=== PATIENT | male | born 1990 | race Caucasian/White ===

== ENCOUNTER 2023-04-28 09:10 | Emergency (ER) | payer SELFPAY ==
[2023-04-28 09:23] VITALS: BP 144/95; PULSE 88; RESP 18; TEMP 36.9; O2SAT 97; BMI 23.7
[2023-04-28 09:27] VITALS: O2SAT 98
--- NOTE | 2023-04-28 09:31 | XR_ITS ---
The [address] [address] Patient Name: UBALDO AWAN MRN: [id number] date: 1990 Sex: M Assigned Patient Location: ER Current Patient Location: ER Accession/Order Number: [id number] Exam Date: 04/28/2023 09:42 Report Date: 04/28/2023 10:06 At the request of: STIVEN WILLETT Procedure: XR chest 2V EXAMINATION: XR chest 2V HISTORY: cough COMPARISON: No relevant comparison available. FINDINGS: LUNGS: Thin curvilinear lucency overlying right lung apex concerning for a 2 mm apical pneumothorax. Lungs otherwise clear; no acute infiltrates or mass. VASCULATURE: No increased pulmonary vasculature. PLEURA: No pleural effusion or pleural thickening. CARDIAC: No cardiomegaly or cardiac silhouette abnormality. MEDIASTINUM: No visible mass or adenopathy. BONES: No fracture or visible bone lesion. OTHER: Negative. XR/XR chest 2V IMPRESSION: 1. Tiny right apical pneumothorax versus artifact from air within the supraclavicular fossa. Chest radiographs during inspiration and expiration are recommended for further evaluation. Findings discussed with Dr. Willett in the emergency department at 10:04 AM. Electronically authenticated by: NOE CURRAN Date: 04/28/2023 10:06
--- NOTE | 2023-04-28 10:14 | XR_ITS ---
The [address] [address] Patient Name: UBALDO AWAN MRN: [id number] date: 1990 Sex: M Assigned Patient Location: ER Current Patient Location: ED.MAIN Accession/Order Number: [id number] Exam Date: 04/28/2023 10:22 Report Date: 04/28/2023 10:37 At the request of: STIVEN WILLETT Procedure: XR chest insp exp EXAMINATION: XR chest insp exp HISTORY: inspiratory and expiratory COMPARISON: XR chest 04/28/2023 9:35 AM FINDINGS: LUNGS: Inspiration and expiration views demonstrate normal appearance of the lungs; no infiltrates, mass, or pneumothorax. VASCULATURE: No increased pulmonary vasculature. PLEURA: No pleural effusion or pleural thickening. CARDIAC: No cardiomegaly or cardiac silhouette abnormality. MEDIASTINUM: No visible mass or adenopathy. BONES: No fracture or visible bone lesion. OTHER: Negative. XR/XR chest insp exp IMPRESSION: 1. No pneumothorax. 2. No acute or suspicious findings to account for patient's symptoms. Electronically authenticated by: NOE CURRAN Date: 04/28/2023 10:37
--- NOTE | 2023-04-28 10:21 | ED.GENADUL1 ---
HPI - General Adult General Chief complaint: Upper Respiratory Infection Stated complaint: DIFFICULTY BREATHING/POSS. SOMETHING IN THROAT Time Seen by Provider: 04/28/23 09:31 Source: patient Mode of arrival: walk-in Limitations: no limitations History of Present Illness HPI narrative: Patient is a 32-year-old male who is presenting to the Emergency Room today with chief complaint of a month history of coughing. 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 Patient is extremely active, but heavy lifting twisting and turning. Patient has been coughing for one month. Patient is also complaining of sore throat, sinus drainage, nasal congestion and sinus congestion for a month. Patient states at different areas of sinus congestion will rotate. Patient is not taking anything [id number] to help with his symptoms. Patient has no recent traveling, trauma. Patient has no upper chest wall pain or tenderness. Patient has lower chest wall pain along his costochondral areas as well. No rash. No acute complaints. Patient does have a nebulizer machine at home, patient states his nebulizer mask is in pieces and parts and is from when he is a child. Patient ran out of his albuterol inhaler as well. No other acute complaints. No nausea, vomiting, diarrhea, or any acute complaints . All systems are negative except as noted/marked. All systems reviewed and otherwise negative. . Nurses note and vital signs reviewed and patient is not hypoxic. General: The patient appears well and in no apparent distress. Patient is resting comfortably on cart. Patient is not toxic, lethargic, or listless Skin: Warm, dry, no pallor noted. There is no rash noted. No petechiae, purpura. Multiple tattoos, no secondary signs of infection Head: Normocephalic, atraumatic Eye: Normal conjunctiva, no drainage, EOMI. PERRL Ears, Nose, Mouth, and Throat: oral mucosa is moist. Nares patent. Mouth without vesicles. Cardiovascular: Regular Rate and Rhythm, no murmur, gallop, rub Respiratory: Patient is in no distress, no accessory muscle use, lungs are clear to auscultation, no wheezing, rales or rhonchi. Lungs are crystal clear. Back: non-tender, no CVA tenderness bilaterally to percussion. No CT LS midline pain GI: soft, no tenderness to palpation, no masses appreciated. No rebound, guarding, or rigidity noted. No flank pain bilateral, No distention Musculoskeletal: Patient has full range of motion of all of the extremities, no motor, sensory, or focal neurological deficits Neurological: A&O x3, normal speech Psychiatric: Cooperative Related Data Previous Rx's Medication Instructions Recorded albuterol sulfate 2.5 mg/3 mL 1.25 mg (1.5 mL) inhalation Q4H 04/28/23 (0.083 %) solution for nebulization PRN shortness of breath or wheezing #90 mL albuterol sulfate 90 mcg/actuation 2 inh inhalation Q4H PRN shortness 04/28/23 breath activated powder of breath or wheezing #1 ea inhaler,sensor methylprednisolone 4 mg tablets in 4 mg PO DAILY 6 days #21 ea 04/28/23 a dose pack (Medrol (Romel)) Allergies Allergy/AdvReac Type Severity Reaction Status Date / Time No Known Drug Allergies Allergy Verified 04/28/23 09:23 [facility] Social History Smoking status: Current every day smoker Exam Constitutional Vital Signs, click to edit/add: Last Vital Signs Temp 98.4 F 04/28/23 09:23 Pulse 88 04/28/23 09:23 Resp 18 04/28/23 09:23 BP 144/95 H 04/28/23 09:23 Pulse Ox 98 04/28/23 09:27 O2 Del Method Room Air 04/28/23 09:27 Course Vital Signs Vital signs: Vital Signs Temperature 98.4 F 04/28/23 09:23 Pulse Rate 88 04/28/23 09:23 Respiratory Rate 18 04/28/23 09:23 Blood Pressure 144/95 H 04/28/23 09:23 Pulse Oximetry 97 04/28/23 09:23 Oxygen Delivery Method Room Air 04/28/23 09:23 Temperature 98.4 F 04/28/23 09:23 Pulse Rate 88 04/28/23 09:23 Respiratory Rate 18 04/28/23 09:23 Blood Pressure 144/95 H 04/28/23 09:23 Pulse Oximetry 98 04/28/23 09:27 Oxygen Delivery Method Room Air 04/28/23 09:27 Medical Decision Making MDM Narrative Medical decision making narrative: Patient had initial chest x-ray that showed no obvious acute abnormality, there is a questionable extremely thin area of possible periapical area that suggested possible pneumothorax. Patient had inspiratory and expiratory x-ray that this proves that, there is no signs of pneumothorax. Patient will be placed on Medrol Dosepak, given a prescription for inhaler, nebulizer Nebules and mask, and patient will be more aggressive with DayQuil, NyQuil, Flonase, and treating his symptoms. No questions at discharge Discharge Plan Discharge Chief Complaint: Upper Respiratory Infection Clinical Impression: Tobacco abuse counseling, Sinus congestion, Tobacco abuse, Sore throat Patient Disposition: Home, Self-Care Prescriptions / Home Meds: New methylprednisolone [Medrol (Romel)] 4 mg tablets,dose pack 4 mg PO DAILY 6 Days Qty: 21 0RF Rx Instructions: as directed albuterol sulfate 90 mcg/actuation aero powdr breath act w/sensor 2 inh inhalation Q4H PRN (Reason: shortness of breath or wheezing) Qty: 1 0RF albuterol sulfate 2.5 mg /3 mL (0.083 %) solution for nebulization 1.25 mg inhalation Q4H PRN (Reason: shortness of breath or wheezing) Qty: 90 0RF Instructions: How to Stop Smoking (ED), Upper Respiratory Infection (ED), Rhinosinusitis (ED), How to Use Nasal [place] (ED), Electronic Cigarettes and Your Health (ED) Additional Instructions: He is DayQuil, NyQuil and Flonase daily for the next 7-10 days. Use steroids to help with cough, congestion, sinus symptoms. Uses inhaler or nebulizer every 4 hours while awake to help with cough, congestion, into help breakdown mucous plugs so they can continue to cough them up. Follow-up with PCP for any further direction. Alternate Tylenol Motrin every 4 hours as needed for chest wall pain Stand Alone Forms: Portal Instructions Referrals: Physician,Non-Staff, MD [Primary Care Provider] - 1 week
[2023-04-28 10:49] VITALS: BP 115/80; PULSE 80; RESP 16; O2SAT 99
== END 2023-04-28 10:50 | disposition home or self-care (01) ==
PROVIDERS: Emergency Provider Emergency Medicine
DX: J02.9 Acute pharyngitis, unspecified (principal); R09.81 Nasal congestion; F17.210 Nicotine dependence, cigarettes, uncomplicated
CPT/HCPCS: 71046; 99283

== ENCOUNTER 2024-07-27 11:59 | Emergency (ER) | payer SELFPAY ==
[2024-07-27 12:02] VITALS: BP 137/85; PULSE 79; TEMP 36.7; O2SAT 99; BMI 23.1
--- NOTE | 2024-07-27 12:46 | ED_ITS ---
HPI - URI/Sore Throat General Chief Complaint: Upper Respiratory Infection Stated Complaint: SHORTNESS OF BREATH Time Seen by Provider: 07/27/24 12:01 Source: patient Limitations: no limitations History of Present Illness HPI Narrative: This patient is here complaining of cough sinus drainage mucus congestion left earache. He does not have nausea vomiting or diarrhea. He continues to smoke approximately half cigarettes a day. He has not tested himself for COVID. He does not have any skin rash. He is post to work the next couple nights. He does not have a primary care practitioner. He does not have severe headache but he does have pain in his left ear there is no drainage or blood. He does have purulent yellowish-brown sputum. Related Data Previous Rx's ?Medication ?Instructions ?Recorded albuterol sulfate 2.5 mg/3 mL 1.25 mg (1.5 mL) inhalation Q4H 04/28/23 (0.083 %) solution for nebulization PRN shortness of breath or wheezing #90 mL Allergies Allergy/AdvReac Type Severity Reaction Status Date / Time No Known Drug Allergies Allergy Verified 04/28/23 09:23 [facility] Social History Smoking status: Current every day smoker Exam Narrative Exam Narrative: It appears awake and alert not septic or toxic but does not feel good. Has a wet cough but no obvious ocular spasm. Vital signs are normal with normal pulse oximetry and respiratory rate. Lungs do not have any wheezing spasm or auscultatory findings. HEENT shows thick mucus down his posterior pharynx. Severe erythema dullness bullae are noted on the left TM with no perforation yet. Right TMs flat dull and normal color. Neck is soft and supple with no meningeal irritation. Skin integument appear normal with no petechiae purpura rash or exanthem. He has no abdominal discomfort. Constitutional Vital Signs, click to edit/add: Last Vital Signs Temp 98.0 F 07/27/24 12:02 Pulse 79 07/27/24 12:02 Resp 18 07/27/24 12:02 BP 137/85 07/27/24 12:02 Pulse Ox 99 07/27/24 12:02 O2 Del Method Room Air 07/27/24 12:02 Course Vital Signs Vital signs: Vital Signs Temperature 98.0 F 07/27/24 12:02 Pulse Rate 79 07/27/24 12:02 Respiratory Rate 18 07/27/24 12:02 Blood Pressure 137/85 07/27/24 12:02 Pulse Oximetry 99 07/27/24 12:02 Oxygen Delivery Method Room Air 07/27/24 12:02 Temperature 98.0 F 07/27/24 12:02 Pulse Rate 79 07/27/24 12:02 Respiratory Rate 18 07/27/24 12:02 Blood Pressure 137/85 07/27/24 12:02 Pulse Oximetry 99 07/27/24 12:02 Oxygen Delivery Method Room Air 07/27/24 12:02 MDM - URI/Sore Throat MDM Narrative Medical decision making narrative: This patient has symptoms consistent with purulent bronchitis and bullous myringitis. He will be started on azithromycin. He will be given work note for the next 2 days. Discharge Plan Discharge Chief Complaint: Upper Respiratory Infection Clinical Impression: Acute left otitis media, Acute purulent bronchitis Patient Disposition: Home, Self-Care Time of Disposition Decision: 12:49 Prescriptions / Home Meds: No Action albuterol sulfate 2.5 mg /3 mL (0.083 %) solution for nebulization 1.25 mg inhalation Q4H PRN (Reason: shortness of breath or wheezing) Qty: 90 0RF Print Language: Afghan Additional Instructions: Z-Romel/off work next 48 hours rest ,fluids, Mucinex Referrals: Physician,Non-Staff, MD [Primary Care Provider] - 1 week
[2024-07-27] MEDS: AZITHROMYCIN 250 MG TABLET 500 MG PO (12:49)
== END 2024-07-27 13:05 | disposition home or self-care (01) ==
PROVIDERS: Emergency Provider Emergency Medicine Emergency Medical Services
DX: J20.9 Acute bronchitis, unspecified (principal); H66.92 Otitis media, unspecified, left ear; R06.02 Shortness of breath; R05.9 Cough, unspecified; F17.210 Nicotine dependence, cigarettes, uncomplicated
CPT/HCPCS: 99283

== ENCOUNTER 2025-04-18 17:18 | Emergency (ER) | payer SELFPAY ==
[2025-04-18 17:24] VITALS: BP 133/92; PULSE 80; TEMP 36.7; O2SAT 99; BMI 20.3
--- NOTE | 2025-04-18 17:48 | ECG_ITS ---
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 Measurements Intervals [place] Rate: 73 P: 30 MD: 136 QRS: 78 QRSD: 84 T: 53 QT: 364 QTc: 391 Interpretive Statements 1100 Sinus rhythm 9110 normal ECG Compared to ECG 01/19/2021 04:12:30 Sinus tachycardia no longer present ST (T wave) deviation no longer present Electronically Signed On 04-20-2025 6:42:43 EDT by JUVE AYALA M.D.
--- NOTE | 2025-04-18 17:48 | XR_ITS ---
[place] [id number] Patient Name: UBALDO AWAN MRN: [id number] date: 1990 Sex: M Assigned Patient Location: ER Current Patient Location: ER Accession/Order Number: [id number] Exam Date: 04/18/2025 19:12 Report Date: 04/18/2025 19:14 At the request of: BENJAMÍN BAUM Procedure: XR chest 2V Plain film chest 2 view HISTORY: Productive cough. Chest pain COMPARISON: 04/28/2023 FINDINGS: SUPPORT DEVICES: None POSTSURGICAL CHANGES: None HEART: Within normal limits PULMONARY MERRY: Within normal limits MEDIASTINUM: Unremarkable LUNGS AND PLEURA: No acute lung process, pleural effusion or pneumothorax identified. BONY STRUCTURES: Intact ADDITIONAL FINDINGS None XR/XR chest 2V IMPRESSION: No acute process. Impression dictated by: Perico Nguyen M.D. 04/18/2025 7:14 PM Dictation Location: [place] Electronically authenticated by: [id number] Y Date: 04/18/2025 19:14
[2025-04-18 18:09] LABS: Hematocrit 38.1 % (42.0-54.0); Hemoglobin 13.3 g/dL (14.0-18.0); Immature Granulocytes Abs Auto 0.02 10^3/uL (0.00-0.03); Immature Granulocytes Pct Auto 0.3 % (0.0-0.5); Lymphocytes Absolute Auto 1.8 10^3/uL (1.2-3.8); Mean Corpuscular HGB Conc 34.9 g/dL (29.9-35.2); Mean Corpuscular Hemoglobin 31.3 pg (25.9-34.0); Mean Corpuscular Volume 89.6 fL (80.0-94.0); Platelet Count 211 10^3/uL (150-450); Red Blood Count 4.25 10^6/uL (4.70-6.10); White Blood Count 6.2 10^3/uL (4.0-11.0)
[2025-04-18] MEDS: METHYLPREDNISOLONE SOD SUCC PF 125 MG/2 ML VIAL IVP (18:11)
[2025-04-18 18:27] LABS: Alanine Aminotransferase 35 U/L (16-63); Albumin Globulin Ratio 1.1; Albumin Level 3.4 g/dL (3.4-5.0); Alkaline Phosphatase 92 U/L (46-116); Anion Gap 13.4; Aspartate Amino Transferase 19 U/L (15-37); Blood Urea Nitrogen 10.0 mg/dL (7.0-18.0); Calcium 9.0 mg/dL (8.5-10.1); Carbon Dioxide 25.4 mmol/L (21.0-32.0); Chloride 106 mmol/L (98-107); Estimated GFR (African America >60 (>=60 mL/min/1.73m^2); Estimated GFR (Non-African Ame >60 (>=60 mL/min/1.73m^2); Globulin 3.1 g/dL; Glucose 96 mg/dL (74-106); Potassium 3.8 mmol/L (3.5-5.1); Sodium 141 mmol/L (136-145); Total Protein 6.5 g/dL (6.4-8.2)
--- NOTE | 2025-04-18 19:03 | ED.GENADUL1 ---
HPI HPI - General Adult General Chief complaint: Shortness of Breath/Dyspnea Stated complaint: HARD TIME BREATHING Time Seen by Provider: 04/18/25 17:35 Source: patient Limitations: no limitations History of Present Illness HPI narrative: 1 month history of chest and side pain, productive cough, shortness of breath, feeling hot and cold. Patient denies any abdominal pain, nausea, vomiting, urinary bleeding, rectal pain, hemoptysis. Patient does smoke we discussed smoking cessation. This is mild/moderate severity patient worsened morning improves throughout the day. Onset (ago): month(s) Location: Reports chest Related Data Home Medications ?Medication ?Instructions ?Recorded ?Confirmed No Known Home Medications 04/18/25 04/18/25 Allergies Allergy/AdvReac Type Severity Reaction Status Date / Time No Known Drug Allergies Allergy Verified 04/18/25 17:24 Opioid HPI Opioid Management Most Recent Opioid Data: Last Pain Scale 2 04/28/23, 09:27 Review of Systems ROS Status of ROS 10 or more systems reviewed and unremarkable except as noted in history and below Constitutional Reports: chills Eyes Denies: change in vision Ears, nose, mouth, and throat Denies: throat pain Cardiovascular Reports: chest pain Respiratory Reports: cough and change in phlegm color Gastrointestinal Denies: abdominal pain Genitourinary Denies: painful urination or blood in urine Musculoskeletal Denies: back pain Psychiatric Denies: anxiety PFSH PFSH Social History Smoking status: Current every day smoker Little interest or pleasure in doing things: not at all Feeling down, depressed, or hopeless: not at all Exam Constitutional Vital Signs, click to edit/add: Last Vital Signs Temp 98.0 F 04/18/25 17:24 Pulse 80 04/18/25 17:24 Resp 18 04/18/25 17:24 BP 133/92 H 04/18/25 17:24 Pulse Ox 99 04/18/25 17:24 O2 Del Method Room Air 04/18/25 17:24 Documenting provider has reviewed patient's vital signs: yes Common normals: no apparent distress HENMT Common normals: normocephalic Nose: external nose normal External ear: external ears normal Tympanic membrane: TMs normal bilaterally Mouth: oral and palatal mucosa normal Eye Common normals: PERRL Neck & C-Spine Common normals: full ROM Chest Chest: tenderness (Posterior left-sided chest tender) Respiratory Common normals: normal respiratory effort Effort & inspection: able to speak in complete sentences Auscultation: rales (Left-sided rales noted) Cardio Common normals: regular rate, regular rhythm, S1 normal heart sound and S2 normal heart sound Common normals: no CVA tenderness Back & Pelvis Common normals: no CVA tenderness Extremity Common normals: normal to inspection Neuro Common normals: oriented x3 Sensorium/orientation: awake and alert Psych Common normals: mental status grossly normal and thought process normal Appearance: grossly normal Course Vital Signs Vital signs: Vital Signs Temperature 98.0 F 04/18/25 17:24 Pulse Rate 80 04/18/25 17:24 Respiratory Rate 18 04/18/25 17:24 Blood Pressure 133/92 H 04/18/25 17:24 Pulse Oximetry 99 04/18/25 17:24 Oxygen Delivery Method Room Air 04/18/25 17:24 Temperature 98.0 F 04/18/25 17:24 Pulse Rate 80 04/18/25 17:24 Respiratory Rate 18 04/18/25 17:24 Blood Pressure 133/92 H 04/18/25 17:24 Pulse Oximetry 99 04/18/25 17:24 Oxygen Delivery Method Room Air 04/18/25 17:24 Medical Decision Making MDM Narrative Medical decision making narrative: Patient presents with 1 month history of productive cough chest pain back pain. He has felt hot and cold but denies any fever, nausea, vomiting, abdominal pain denies any urinary bleeding, rectal bleeding. Patient does smoke we advised him to discontinue all smokes and vapes. Patient follow-up with primary care. Will add CBC CMP troponin EKG chest x-ray DuoNeb and Solu-Medrol 125mg. Patient agreeable plan of care. AMA per nursing. Patient refused medications once discharged to home. States he has home medications. Differential Diagnosis Differential Diagnosis: Bronchitis, pneumonia, COPD, chest wall pain. Lab Data Lab results reviewed: Yes I reviewed the patient's lab results Labs: Lab Results 04/18/25 Range/Units 18:05 WBC 6.2 (4.0-11.0) 10^3/uL RBC 4.25 L (4.70-6.10) 10^6/uL Hgb 13.3 L (14.0-18.0) g/dL Hct 38.1 L (42.0-54.0) % MCV 89.6 (80.0-94.0) fL MCH 31.3 (25.9-34.0) pg MCHC 34.9 (29.9-35.2) g/dL RDW 13.0 (11.0-15.0) % Plt Count 211 (150-450) 10^3/uL MPV 9.8 (9.5-13.5) fL Neut % (Auto) 55.3 (43.0-75.0) % Lymph % (Auto) 29.1 (20.5-60.0) % [place] % (Auto) 9.5 (1.7-12.0) % Eos % (Auto) 5.2 (0.9-7.0) % Baso % (Auto) 0.6 (0.2-2.0) % Neut # (Auto) 3.4 (1.4-6.5) 10^3/uL Lymph # (Auto) 1.8 (1.2-3.8) 10^3/uL [place] # (Auto) 0.6 (0.3-0.8) 10^3/uL Eos # (Auto) 0.3 (0.0-0.7) 10^3/uL Baso # (Auto) 0.0 (0.0-0.1) 10^3/uL Abs Immat Gran (auto) 0.02 (0.00-0.03) 10^3/uL Imm/Tot Granulo (auto) 0.3 (0.0-0.5) % Sodium 141 (136-145) mmol/L Potassium 3.8 (3.5-5.1) mmol/L Chloride 106 (98-107) mmol/L Carbon Dioxide 25.4 (21.0-32.0) mmol/L Anion Gap 13.4 BUN 10.0 (7.0-18.0) mg/dL Creatinine 0.71 (0.70-1.30) mg/dL Est GFR ( Amer) >60 (>=60 mL/min/1.73m^2) Est GFR (Non-Af Amer) >60 (>=60 mL/min/1.73m^2) BUN/Creatinine Ratio 14.1 Glucose 96 (74-106) mg/dL Calcium 9.0 (8.5-10.1) mg/dL Total Bilirubin 0.3 (0.2-1.0) mg/dL AST 19 (15-37) U/L ALT 35 (16-63) U/L Alkaline Phosphatase 92 (46-116) U/L Troponin I High Sens 4.9 (4.0-76.1) pg/mL Total Protein 6.5 (6.4-8.2) g/dL Albumin 3.4 (3.4-5.0) g/dL Globulin 3.1 g/dL Albumin/Globulin Ratio 1.1 Discharge Plan Discharge Stand Alone Forms: Portal Instructions Chief Complaint: Shortness of Breath/Dyspnea Clinical Impression: Asthma with acute exacerbation Patient Disposition: Left Against Medical Advice Time of Disposition Decision: 19:41 Condition: Undetermined Mode of Transportation: Private Vehicle Prescriptions / Home Meds: No Action No Known Home Medications Print Language: Slovenian Referrals: Physician,Non-Staff, MD [Primary Care Provider] - 1 week
== END 2025-04-18 19:30 | disposition left against medical advice (07) ==
PROVIDERS: Physician Assistant; Emergency Provider Emergency Medicine
DX: J45.901 Unspecified asthma with (acute) exacerbation (principal); Z53.29 Procedure and treatment not carried out because of patient's decision for other reasons; F17.200 Nicotine dependence, unspecified, uncomplicated
CPT/HCPCS: 36415; 71046; 80053; 84484; 85025; 93005; 96374; 99285; J2919